=== PATIENT | male | born 1995 | race Caucasian/White ===

== ENCOUNTER 2024-11-27 21:18 | Emergency (ER) | payer OTHER, SELFPAY ==
[2024-11-27 21:20] VITALS: BP 147/83
[2024-11-27 22:32] VITALS: BP 118/74
[2024-11-27 23:18] VITALS: BMI 31.1
[2024-11-27 23:20] VITALS: BP 129/87
--- NOTE | 2024-11-27 23:46 | ED.GENMED ---
History of Present Illness
General
Chief Complaint: Throat Problem
Source: patient
Exam Limitations: none
Time Seen by Provider: 11/27/24 22:14
Nursing documentation reviewed up to this point in time: agreed with
History of Present Illness
History of Present Illness:
Patient presents to ED for evaluation secondary to persistent sensation of fishbone stuck in his throat, after having [place] for dinner. Patient has been able to drink water without difficulty. Denies difficulty with breathing. Denies nausea or
vomiting. Denies previous history of similar symptoms.
Review of Systems
Review of Systems
Allergies reviewed?: Yes
All Other Systems: ROS reviewed and negative except as documented in HPI and ROS
Constitutional: Reports no symptoms; Denies fever
ABD/GI: Reports other (Fishbone stuck in his throat); Denies nausea or vomiting
Musculoskeletal: Reports no symptoms
Skin: Reports no symptoms
Neurological: Reports no symptoms
Phy Exam
Physical Exam
Physical Exam:
Physical Exam
General: no apparent distress, not acutely ill. afebrile
Head: nc/at. eomi
Neck: supple. no meningeal signs. normal posterior pharynx
Heart: s1/s2 regular rate and rhythm
Lungs: no acute respiratory distress. clear bilaterally
Abdomen: normal bowel sounds. not tender.
Neuro: alert and oriented x 3. no focal neurological deficits
Skin: no rash
Psychiatric: well kept. interactive and cooperative
Extremities: no edema. no calf tenderness.
Course
Orders/Labs/Results
Orders:
Orders
11/27/24 22:35
CT Chest W/o Iv Contrast Urgent
Comment:
Reason For Exam: possible FB after swallowing fishbone
Vital Signs
Initial and Last Documented VS:
Initial Vital Signs
Temp Pulse Resp BP Pulse Ox
99.0 F 61 18 147/83 99
11/27/24 21:20 11/27/24 21:20 11/27/24 21:20 11/27/24 21:20 11/27/24 21:20
Last Documented Vital Signs
Temp Pulse Resp BP Pulse Ox
99.0 F 61 15 129/87 98
11/27/24 21:20 11/27/24 23:24 11/27/24 23:24 11/27/24 23:20 11/27/24 23:30
MDM/Problems Addressed
MDM/Problems Addressed:
Discussed with on-call GI physician, , who recommends obtaining CT scan to evaluate for foreign body.
CT chest not reveal acute esophageal foreign body. Incidental pulmonary nodule noted, which was discussed with patient and his mother.
Dr. Flores recommends that patient can be discharged home with use of PPI, tylenol/motrin at home, along with soft diet. Patient will be advised to return to ED with worsening symptoms. Patient and mother expressed understanding at time of
discharge.
*Critical Care Note
Total Time (30-74mins, 75-104mins- exclusive of procedures): Not Applicable
ED Attending Note
-
Portions of this chart may have been created with voice recognition software.� Occasional wrong word or��sound alike� substitutions may have occurred due to the inherent limitations of voice recognition software.
Discharge Plan
Departure
Patient Disposition: Home (Routine Discharge)
Date of Disposition: 11/27/24
Time of Disposition: 23:46
Patient with high blood pressure during this ER visit?: Yes
Discharge Problem:
Esophagus, foreign body
Instructions: Food Obstruction
Prescriptions:
No Action
cetirizine [Zyrtec] 5 mg Tablet
5 mg PO DAILY
Flonase Sensimist 27.5 mcg/actuation [place],Suspension
1 spray INTRANASAL DAILY
Referrals:
PRIVATE,PHYSICIAN [Family Provider, Internal Medicine]
Brittany Flores MD [Active, Gastroenterology]
Activity Restrictions/Additional Instructions:
As discussed, please follow-up with your primary care physician and/or referred GI physician with any further concerns. Please consider return to ED with worsening symptoms. In the meantime, recommend starting PPI medication daily, i.e.
Prilosec/Protonix/Nexium/Pepcid.
Interventions
Interventions:
*Risk Screen - Suicide Last Done: 11/27/24 21:20
*General Assessment Last Done: 11/27/24 21:33
*Neglect/Abuse Screening Last Done: 11/27/24 21:20
*ED- Fall Risk Assessment Last Done: 11/27/24 21:33
*ED COVID-19 Vaccine History Last Done: 11/27/24 21:33
*Nursing Disposition Last Done: 11/28/24 00:09
ED-EENT Assessment Last Done: 11/27/24 23:20
ED- Pulmonary Assessment Last Done: 11/27/24 23:20
Discharge Date and Time
Discharge Date/Time: 11/27/24 23:55
Print Language: FINNISH
== END 2024-11-27 23:55 | disposition home or self-care (01) ==
LOC: EMR 21:18
PROVIDERS: EMERGENCY PHYSICIAN Emergency Medicine
DX: T18.108A Unspecified foreign body in esophagus causing other injury, initial encounter (principal); W44.F3XA Food entering into or through a natural orifice, initial encounter
CPT/HCPCS: 99284; 71250